=== PATIENT | female | born 1955 | race Caucasian/White ===

== ENCOUNTER 2017-02-23 00:44 | Emergency (ER) | payer OTHER ==
[2017-02-23 00:53] VITALS: BP 131/92; TEMP 98.3; BMI 26.2
[2017-02-23] MEDS ORDERED: SODIUM CHLORIDE 1,000 ML IV ONE ×2 (01:04)
[2017-02-23] MEDS ORDERED: ONDANSETRON 4 MG/2 ML VIAL ONE (01:05)
[2017-02-23] MEDS ORDERED: ONDANSETRON 4 MG/2 ML VIAL IVPB ONE (01:05)
--- NOTE | 2017-02-23 01:06 | PDOC ---
History of Present Illness - General Chief Complaint: Nausea/Vomiting Stated Complaint: NAUSEA/VOMITING History Source: Patient Exam Limitations: No Limitations - History of Present Illness Initial Comments: 02/23/17 01:02 This is a 61-year-old female who comes in complaining of nausea and vomiting. Patient denies any diarrhea. Patient denies any fevers or chills. Patient said symptoms began this evening and she has vomited multiple times. Patient is complaining of some mild ". Mid abdominal pain. Patient is otherwise healthy. Patient said nobody else at her house is sick with similar symptoms. PAST MEDICAL HISTORY: no significant history PAST SURGICAL HISTORY: no significant history FAMILY HISTORY: no pertinant history SOCIAL HISTORY: Pt lives with family and is employed. MEDICATIONS: reviewed ALLERGIES: As per nursing notes Review of Systems General: No fevers or chills, no weakness, no weight loss HEENT: No change in vision. No sore throat,. No ear pain CardioVascular: No chest pain or shortness of breath Respiratory:No cough, or wheezing. Gastrointestinal: + nausea, + vomitting, no diarrhea or constipation, No rectal bleeding Genitourinary: No dysuria, hematuria, or frequency Musculoskeletal: No joint or muscle pain or swelling Neurologic: No headache, vertigo, dizziness or loss of consciousness Psychiatric: nor depression Skin: No rashes or easy bruising Endocrine: no increased thirst or abnormal weight change Allergic: no skin or latex allergy All other systems reviewed and normal Exam: General: Well-nourished well-developed individual, no acute distress HEENT: Throat: Normal, tonsils normal, no erythema or exudate Neck: Supple, no meningeal signs, no lymphadenopathy Eyes::Pupils equal reactive and round, extraocular motion intact Chest: Nontender to palpation Cardiac: S1-S2 normal, regular rate and rhythm, no murmurs rubs or gallops Respiratory: Lungs clear to auscultation bilateral Abdomen: Soft, nondistended, normal bowel sounds, nontender to palpation diffusely Extremities: Warm, dry, no cyanosis, clubbing, or edema Skin: No rashes Neuro: Alert and oriented x3, nonfocal exam, grossly intact, normal gait Psych: Normal mood and affect Reevaluation post 2 L of fluid. Patient's pain is resolved. Patient tolerating by mouth's and feels much better. Patient is now well-hydrated and that she will be discharged home.. Past History - Past Medical History Allergies/Adverse Reactions: Allergies Allergy/AdvReac Type Severity Reaction Status Date / Time No Known Allergies Allergy Unverified 09/18/13 09:04 Home Medications: Ambulatory Orders Ezetimibe/Simvastatin [Vytorin 10-10 mg Tablet] 1 tab PO DAILY 02/23/17 Hypercholesterolemia: Yes - Psycho/Social/Smoking Cessation Hx Anxiety: No Suicidal Ideation: No Smoking History: Never smoked *Physical Exam - Vital Signs Last Vital Signs Temp Pulse Resp BP Pulse Ox 98.3 F 112 H 16 131/92 98 02/23/17 00:51 02/23/17 00:51 02/23/17 00:51 02/23/17 00:51 02/23/17 00:51 *DC/Admit/Observation/Transfer Diagnosis at time of Disposition: Dehydration Vomiting Qualifiers: Vomiting type: unspecified Vomiting Intractability: non-intractable Nausea presence: with nausea Qualified Code(s): R11.2 - Nausea with vomiting, unspecified - Discharge Dispostion Disposition: HOME Condition at time of disposition: Stable Admit: No - Referrals Referrals: Ricci Marcial MD [Primary Care Provider] - - Patient Instructions Printed Discharge Instructions: DI for Vomiting -- Adult Additional Instructions: Clear liquids only for the next 6 hours.. After that if you have had no further vomiting you may have bananas, rice, applesauce, or toast. If no further vomiting for another 8 hours you may have regular food. If you vomit again then nothing to eat or drink for 2 hours. then start back with the clear liquids. Return to the emergency department immediately with ANY new, persistent or worsening symptoms. You MUST call and follow up with your doctor tomorrow if not better. Please make sure your doctor reviews the results of your emergency evaluation.
[2017-02-23 02:58] VITALS: PULSE 90
== END 2017-02-23 02:53 | disposition home or self-care (01) ==
LOC: FER 00:44
PROC: 3E0337Z Introduction of Electrolytic and Water Balance Substance into Peripheral Vein, Percutaneous Approach (ICD-10-PCS; principal; 2017-02-23)
PROC: 3E033GC Introduction of Other Therapeutic Substance into Peripheral Vein, Percutaneous Approach (ICD-10-PCS; 2017-02-23)
DX: E86.0 Dehydration (principal); E78.00 Pure hypercholesterolemia, unspecified
CPT/HCPCS: 99283-25

== ENCOUNTER 2017-02-23 20:53 | Observation (INO) | payer OTHER ==
[2017-02-23 20:57] VITALS: BMI 25.7
--- NOTE | 2017-02-23 21:53 | PDOC ---
History of Present Illness - General Chief Complaint: Pain, Acute Stated Complaint: ABDOMINAL PAIN Time Seen by Provider: 02/23/17 21:00 History Source: Patient Exam Limitations: No Limitations - History of Present Illness Initial Comments: 02/23/17 22:24 This is a 61-year-old female who was seen by me last night in the emergency room for nausea vomiting and gastroenteritis. Patient was hydrated last night and given Zofran with improvement in her symptoms and she was discharged home post 2 L of fluid. Post discharge patient said she felt better initially and then pain returned and that she begin to feel worse again so followed up with her primary care doctor in the morning. He was concerned on his exam that she had some tenderness and center for a CAT scan to rule out obstruction. The CAT scan showed several mildly dilated left upper abdominal small bowel loops suggestive of a mild small bowel obstruction. There was no discreet obstructing mass visible on the study. However there was some omental soft tissue nodularity which may represent a neoplastic disease. Patient was sent to the emergency room for admission. In the emergency room patient has had multiple bowel movements and said that her symptoms have completely resolved the pain is resolved and she feels much better however has agreed to admission as she is concerned the pain may return. PAST MEDICAL HISTORY: As per history of present illness PAST SURGICAL HISTORY: no significant history FAMILY HISTORY: no pertinant history SOCIAL HISTORY: Pt lives with family and is employed. MEDICATIONS: reviewed ALLERGIES: As per nursing notes Review of Systems General: No fevers or chills, no weakness, no weight loss HEENT: No change in vision. No sore throat,. No ear pain CardioVascular: No chest pain or shortness of breath Respiratory:No cough, or wheezing. Gastrointestinal: Abdominal pain, nausea, vomiting, Genitourinary: No dysuria, hematuria, or frequency Musculoskeletal: No joint or muscle pain or swelling Neurologic: No headache, vertigo, dizziness or loss of consciousness Psychiatric: nor depression Skin: No rashes or easy bruising Endocrine: no increased thirst or abnormal weight change Allergic: no skin or latex allergy All other systems reviewed and normal Exam: General: Well-nourished well-developed individual, no acute distress HEENT: Throat: Normal, tonsils normal, no erythema or exudate Neck: Supple, no meningeal signs, no lymphadenopathy Eyes::Pupils equal reactive and round, extraocular motion intact Chest: Nontender to palpation Cardiac: S1-S2 normal, regular rate and rhythm, no murmurs rubs or gallops Respiratory: Lungs clear to auscultation bilateral Abdomen: Soft, nondistended, normal bowel sounds, nontender to palpation diffusely Extremities: Warm, dry, no cyanosis, clubbing, or edema Skin: No rashes Neuro: Alert and oriented x3, nonfocal exam, grossly intact, normal gait Psych: Normal mood and affect Assessment and plan: This is a 61-year-old female who was sent to the emergency room for admission to the hospital. Patient has a partial small bowel obstruction versus small bowel obstruction. However post arrival in the ER patient is had multiple episodes of bowel movements and said pain is completely resolved. However patient will be admitted to a inpatient bed for further evaluation and workup of her abnormal CAT scan findings. Past History - Past Medical History Allergies/Adverse Reactions: Allergies Allergy/AdvReac Type Severity Reaction Status Date / Time No Known Allergies Allergy Unverified 09/18/13 09:04 Home Medications: Ambulatory Orders Ezetimibe/Simvastatin [Vytorin 10-10 mg Tablet] 1 tab PO DAILY 02/23/17 Hypercholesterolemia: Yes - Psycho/Social/Smoking Cessation Hx Anxiety: No Suicidal Ideation: No Smoking History: Never smoked *Physical Exam - Vital Signs Last Vital Signs Temp Pulse Resp BP Pulse Ox 98.7 F 91 H 18 122/74 97 02/23/17 20:55 02/23/17 20:55 02/23/17 20:55 02/23/17 20:55 02/23/17 20:55 ED Treatment Course - RADIOLOGY Radiology Studies Ordered: Category Date Time Status CHEST PA & LAT [RAD] Stat Radiology 02/23/17 21:47 Ordered *DC/Admit/Observation/Transfer Diagnosis at time of Disposition: Small bowel obstruction - Discharge Dispostion Disposition: HOME Condition at time of disposition: Stable Admit: Yes
[2017-02-23] MEDS ORDERED: ONDANSETRON 4 MG/2 ML VIAL IVPB PRN (23:26)
[2017-02-23] MEDS ORDERED: morphine CARPU-JECT 2 MG/1 ML DISP.SYRIN IVPUSH PRN (23:26)
[2017-02-23] MEDS ORDERED: SODIUM CHLORIDE 1,000 ML IV SCH (23:30)
[2017-02-24] MEDS: HEPARIN NA (PORCINE) 5,000 UNITS/ML 1ML VIAL SQ SCH ×2 (06:51→12:59)
[2017-02-24 08:06] LABS: MCH 27.2 pg (25.7-33.7); MCHC 33.8 g/dl (32.0-36.0); MEAN CELL VOLUME 80.4 fl (80-96); MEAN PLT VOLUME 7.4 fl (7.5-11.1); PLATELET COUNT 286 K/MM3 (134-434); RDW 13.6 % (11.6-15.6); WHITE BLOOD COUNT 9.2 K/mm3 (4.0-10.8)
[2017-02-24 08:31] LABS: ALBUMIN 3.9 g/dl (3.5-5.0); ALK PHOS 52 U/L (32-92); ANION GAP 11 (8-16); BILIRUBIN,TOTAL 1.2 mg/dl (0.2-1.0); CO2 25 mmol/L (22-28); COCKROFT - GAULT 100.9375; CREATININE 0.6 mg/dl (0.6-1.3); GLUCOSE,RANDOM 95 mg/dl (74-106); SGOT/AST 30 U/L (10-42); SGPT/ALT 17 U/L (10-40); TOT PROT 6.7 g/dl (6.4-8.3)
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
[2017-02-24] MEDS ORDERED: PANTOPRAZOLE 40 MG TABLET (FP) PO SCH (10:00)
[2017-02-24] MEDS ORDERED: POTASSIUM CHLORIDE TABS 20 MEQ TABLET.ER (FP) PO ONE ×2 (11:04→12:15)
[2017-02-24] MEDS ORDERED: ACETAMINOPHEN 500 MG TABLET (FP) PO ONE (12:41)
[2017-02-24 13:17] VITALS: BP 118/71; PULSE 98; TEMP 98
--- NOTE | 2017-02-24 13:18 | DS ---
Physical Exam: SUBJECTIVE: Patient seen and examined. Feeling much better. Tolerated clear liquid diet for breakfast and soft diet for lunch. No vomiting. No pain. No nausea. OBJECTIVE: Vital Signs 3 Period Temp Pulse Resp BP Sys/Blake Pulse Ox Last 24 Hr 98.1 F-98.9 F 80-85 18-20 124-150/65-83 95-97 PHYSICAL EXAM GENERAL: The patient is awake, alert, and fully oriented, in no acute distress. HEAD: Normal with no signs of trauma. EYES: PERRL, extraocular movements intact, sclera anicteric, conjunctiva clear. ENT: Ears normal, nares patent, oropharynx clear without exudates, moist mucous membranes. NECK: Trachea midline, full range of motion, supple. LUNGS: Breath sounds equal, clear to auscultation bilaterally, no wheezes, no crackles, no accessory muscle use. HEART: Regular rate and rhythm, S1, S2 without murmur, rub or gallop. ABDOMEN: Soft, nondistended, normoactive bowel sounds, no guarding, no rebound, no hepatosplenomegaly, no masses. mild tenderness, generalized, on deep palpation. EXTREMITIES: 2+ pulses, warm, well-perfused, no edema. NEUROLOGICAL: Cranial nerves II through XII grossly intact. Normal speech, gait not observed. PSYCH: Normal mood, normal affect. SKIN: Warm, dry, normal turgor, no rashes or lesions noted. LABS Laboratory Results - last 24 hr 3 02/24/17 02/24/17 07:50 07:50 WBC 9.2 D RBC 4.66 Hgb 12.7 Hct 37.5 MCV 80.4 MCHC 33.8 RDW 13.6 Plt Count 286 MPV 7.4 L Sodium 140 Potassium 3.4 L D Chloride 104 Carbon Dioxide 25 Anion Gap 11 BUN 12 D Creatinine 0.6 Creat Clearance w eGFR > 60 Random Glucose 95 Calcium 9.0 Total Bilirubin 1.2 H D AST 30 ALT 17 Alkaline Phosphatase 52 Total Protein 6.7 Albumin 3.9 Imagin02/24/17 10:08: ABDOMEN FLAT UPRIGHT Abdomen: Small bowel obstruction Imaging reveals contrast in the colon and appendix and air distention of some small bowel loops. Since the prior study of 02/23/2017, the small bowel air distention has diminished. This may represent a resolving small bowel obstruction or partial small bowel obstruction. Free air is not seen. The lung bases appear well-aerated. There is a large heart. Correlation recommended. 02/23/17 19:14: Abdomen and pelvis CT without intravenous contrast Clinical information: abdominal pain, rebound tenderness, fever, emesis Multiplanar imaging was performed. As requested intravenous contrast was not administered. Oral contrast was administered. There is mild dilatation of several small bowel loops within the left upper abdomen suggestive of mild obstruction. Also within the left upper abdomen ventrally note is made of mild omental soft tissue nodularity adjacent to the abdominal wall (transaxial images 43 - 47). There is a small amount of free fluid within the pelvic cul-de-sac. A trace amount of free fluid is noted within the right pericolic space. No abscess, or pneumoperitoneum is seen The appendix appears unremarkable. Colonic diverticulosis is noted without CT evidence of acute diverticulitis. Cholelithiasis is seen without CT evidence of acute inflammation. No biliary tract dilatation is identified. The liver, spleen, pancreas, adrenal glands and kidneys demonstrate no discrete noncontrast abnormality. There is no aortic aneurysm. No definite adnexal mass lesion is identified. A 3 cm partially calcified leiomyoma is noted within the left lateral aspect of the uterine body. There is no discrete lymphadenopathy. The visualized osseous structures demonstrate no obvious CT evidence of acute pathology or neoplastic disease. There is mild L4-L5 degenerative spondylolisthesis. A punctate calcified left lower lobe pulmonary granuloma is seen. Impression: Several mildly dilated left upper abdominal small bowel loops are noted suggestive of mild small bowel obstruction. A discrete obstructing mass lesion cannot be identified on this study. Mild left upper quadrant omental soft tissue nodularity is seen which may represent neoplastic disease/ peritoneal carcinomatosis. A small amount of free fluid is noted within the pelvic cul-de-sac and right paracolic space. There is equivocal mild soft tissue thickening adjacent to the terminal ileum (versus representing artifact secondary to underdistention). 3 cm partially calcified uterine leiomyoma. HOSPITAL COURSE: Date of Admission:02/23/17 Date of Discharge: 02/24/17 This is a 61yF with PMH HLD, x 4, bowel resection secondary to adhesions who presented with SBO. She was feeling better after receiving po contrast last evening. No further severe pain. Passing gas. Has had multiple BMs today, the last one watery and loose. No further vomiting or focal pain. Tolerated clear liquid diet for breakfast and soft diet for lunch. DW Dr. Marcial who will see pt Sunday morning at 830AM. She is aware of finding of soft tissue nodularity in LUQ and knows she will need outpatient workup. Advised to return for any recurrence of symptoms. Pt is aware of risk for recurrence of obstruction and will eat a soft diet. Minutes to complete discharge: 40 Discharge Summary Reason For Visit: SMALL BOWEL OBSTRUCTION Current Active Problems Small bowel obstruction (Acute) Condition: Stable - Instructions Diet, Activity, Other Instructions: Return to the ED if your abdominal pain or vomiting returns. Eat a soft, easily digestible diet. No steak. F/u with Dr. Marcial at 830am on Sunday. Referrals: Ricci Marcial MD [Primary Care Provider] - - Home Medications Comprehensive Discharge Medication List: Ambulatory Orders Ezetimibe/Simvastatin [Vytorin 10-10 mg Tablet] 1 tab PO DAILY 02/23/17 This patient is new to me today: Yes Date on this admission: 02/24/17 Emergency Visit: Yes ED Registration Date: 02/23/17 Care time: The patient presented to the Emergency Department on the above date and was hospitalized for further evaluation of their emergent condition. Critical Care patient: No - Discharge Referral Referred to [facility] Med [facility].C[facility] Yes Physician Referral: Ricci Marcial MD (Int Med)
--- NOTE | 2017-02-25 16:11 | EKG ---
Test Reason : Blood Pressure : / mmHG Vent. Rate : 075 BPM Atrial Rate : 075 BPM P-R Int : 160 ms QRS Dur : 092 ms QT Int : 412 ms P-R-T Axes : 067 064 052 degrees QTc Int : 460 ms NORMAL SINUS RHYTHM BIATRIAL ENLARGEMENT LEFT VENTRICULAR HYPERTROPHY ABNORMAL ECG NO PREVIOUS ECGS AVAILABLE Confirmed by JERSON HUNTER MD ([id number]) on 02/25/2017 4:10:50 PM Referred By: MD GUERRIER Confirmed By:JERSON HUNTER MD
== END 2017-02-24 13:50 | disposition home or self-care (01) ==
LOC: FER 20:53 → FM/S 23:26 → UNDOADMOB 23:58 → INTOOBSV 23:58
PROVIDERS: ADMIT Internal Medicine; ATTEND Nurse Practitioner Family
PROC: 3E033NZ Introduction of Analgesics, Hypnotics, Sedatives into Peripheral Vein, Percutaneous Approach (ICD-10-PCS; principal; 2017-02-23)
PROC: 3E0337Z Introduction of Electrolytic and Water Balance Substance into Peripheral Vein, Percutaneous Approach (ICD-10-PCS; 2017-02-23)
PROC: 3E013GC Introduction of Other Therapeutic Substance into Subcutaneous Tissue, Percutaneous Approach (ICD-10-PCS; 2017-02-23)
DX: K56.60 Unspecified intestinal obstruction (principal); K57.30 Diverticulosis of large intestine without perforation or abscess without bleeding; E87.6 Hypokalemia; E78.5 Hyperlipidemia, unspecified; K80.20 Calculus of gallbladder without cholecystitis without obstruction; D25.9 Leiomyoma of uterus, unspecified; M43.10 Spondylolisthesis, site unspecified; J84.10 Pulmonary fibrosis, unspecified
CPT/HCPCS: 36415; 71020-TC; 74020-TC; 80053; 85027; 93005; 99284-25; G0378; J1644

== ENCOUNTER 2017-07-29 08:22 | Emergency (ER) | payer OTHER ==
--- NOTE | 2017-07-29 08:27 | PDOC ---
History of Present Illness - General Chief Complaint: Pain Stated Complaint: RT ANKLE PAIN Time Seen by Provider: 07/29/17 08:27 Past History - Travel Traveled outside of the country in the last 30 days: No Close contact w/someone who was outside of country & ill: No - Past Medical History Allergies/Adverse Reactions: Allergies Allergy/AdvReac Type Severity Reaction Status Date / Time No Known Allergies Allergy Verified 07/29/17 08:24 Home Medications: Ambulatory Orders Ezetimibe/Simvastatin [Vytorin 10-10 mg Tablet] 1 tab PO DAILY 02/23/17 Bacitracin - [Bacitracin Topical Ointment -] 1 applic TP BID #10 g 07/29/17 Hypercholesterolemia: Yes - Psycho/Social/Smoking Cessation Hx Anxiety: No Suicidal Ideation: No Smoking History: Never smoked Hx Alcohol Use: No Drug/Substance Use Hx: No Review of Systems - Review of Systems Constitutional: No: Symptoms Reported, See HPI, Chills, Diaphoresis, Fever, Loss of Appetite, Malaise, Night Sweats, Weakness, Weight Stable, Unintentional Wgt. Loss, Unexplained wgt Loss, Other HEENTM: No: Symptoms Reported, See HPI, Eye Pain, Blurred Vision, Tearing, Recent change in vision, Double Vision, Cataracts, Ear Pain, Ocular Prothesis, Ear Discharge, Nose Pain, Nose Congestion, Tinnitus, Nose Bleeding, Hearing Loss , Throat Pain, Throat Swelling, Mouth Pain, Dental Problems, Difficulty Swallowing, Mouth Swelling, Other Respiratory: No: Symptoms reported, See HPI, Cough, Orthopnea, Shortness of Breath, SOB with Exertion, SOB at Rest, Stridor, Wheezing, Productive cough, Hemoptysis, Other Cardiac (ROS): No: Symptoms Reported, See HPI, Chest Pain, Edema, Irregular Heart Rate, Lightheadedness, Palpitations, Syncope, Chest Tightness, Other ABD/GI: No: Symptoms Reported, See HPI, Abdominal Distended, Abd. Pain w/ defecation, Blood Streaked Bowels, Constipated, Diarrhea, Difficulty Swallowing , Nausea, Poor Appetite, Poor Fluid Intake, Rectal Bleeding, Vomiting, Indigestion, Abdominal cramping, Tarry Stools, Other : No: Symptoms Reported, See HPI, Burning, Dysuria, Discharge, Frequency, Flank Pain, Hematuria, Incontinence, Pain, Urgency, Testicular Mass, Testicular Swelling, Lesions, Testicular Pain, Other Musculoskeletal: Yes: Joint Pain Medical Decision Making - Medical Decision Making 07/29/17 18:29 Pt comes with ankle pain at the lateral aspect. Slight skin swelling and red demarcated lesion. Looks like a bug bite/cellulitis, but pt has deep joint pain. XRAYs normal. No warmth at the site. Pt states that last week she had medial aspect ankle pain. Now migrated to the lateral aspect. Pt placed in ayaz wrap and asked to take NSAIDs and follow with PMD. Pt is aware of the lesion on the tibia, and she understands she may need an MRI to evaluate it further. *DC/Admit/Observation/Transfer Diagnosis at time of Disposition: Ankle swelling, Localized soft tissue swelling - Discharge Dispostion Disposition: HOME Condition at time of disposition: Stable Admit: No - Prescriptions Prescriptions: Bacitracin - [Bacitracin Topical Ointment -] 1 applic TP BID #10 g - Patient Instructions Printed Discharge Instructions: Soft Tissue Pain (Alternative Therapy), DI for Ankle Sprain
[2017-07-29] MEDS ORDERED: BACITRACIN 15 GM TUBE TOPICAL OINTMENT TP ONE (08:28)
[2017-07-29] MEDS ORDERED: IBUPROFEN 600 MG TABLET (FP) PO ONE ×2 (08:28→08:51)
[2017-07-29 08:38] VITALS: BP 121/80; PULSE 93; TEMP 98; BMI 26.2
== END 2017-07-29 09:26 | disposition home or self-care (01) ==
LOC: FER 08:22
DX: M25.571 Pain in right ankle and joints of right foot (principal); M25.471 Effusion, right ankle
CPT/HCPCS: 73610-TC-RT; 73630-TC-RT; 99281-25